=== PATIENT | male | born 1995 | race Caucasian/White ===

== ENCOUNTER 2017-09-27 03:00 | Emergency (ER) | payer OTHER, BC ==
[2017-09-27] MEDS: ONDANSETRON (ODT) 4 MG TAB ODT (03:47)
[2017-09-27] MEDS: ACET/BUTAL/CAFF TAB PO (03:47)
[2017-09-27] MEDS: KETOROLAC 60 MG INJ IM (04:39)
== END 2017-09-27 05:03 | disposition home or self-care (01) ==
LOC: FTE 03:00
DX: R51 Headache (principal)
CPT/HCPCS: 70450; 96372; 99285-25

== ENCOUNTER 2018-05-16 16:36 | Emergency (ER) | payer OTHER, BC ==
[2018-05-16] MEDS: IBUPROFEN 800 MG TAB PO (18:07)
[2018-05-16] MEDS: LIDOCAINE 1% (MDV) 20 ML INJ SC (19:27)
[2018-05-16] MEDS: LIDOCAINE 1% (MPF) 5 ML VIAL SC (19:27)
[2018-05-16] MEDS: HYDROCODONE/APAP (5/325) TAB PO (19:32)
== END 2018-05-16 20:06 | disposition home or self-care (01) ==
LOC: FTE 16:36
DX: K61.0 Anal abscess (principal)
CPT/HCPCS: 46050; 99283-25